=== PATIENT | male | born 1965 | race American Indian/Alaskan Native ===

== ENCOUNTER 2023-03-03 13:09 | Inpatient (IN) | payer SELFPAY ==
[~2023-03-03] VITALS: Ht 180.3 cm; Wt 104.7 kg
[2023-03-03 13:46] LABS: BASO % 0.2 % (0.0-2.0); GRAN # 10.7 K/mm3 (1.4-6.5); GRAN % 81.8 % (42.2-75.2); HEMATOCRIT 39.5 % (42.0-52.0); HEMOGLOBIN 13.9 g/dl (13.5-18.0); LYMPH # 1.2 K/mm3 (1.2-3.4); LYMPH % 8.8 % (20.0-51.0); MEAN CELL VOLUME 85 fl (80.0-100.0); MEAN CORPUSCULAR HEMOGLOBIN 30 pg (27-31); MEAN CORPUSCULAR HGB CONC 35 g/dl (33.0-37.0); MEAN PLATELET VOLUME 8.7 fl (7.4-10.4); MONO # 1.1 K/mm3 (0.1-0.6); MONO % 8.6 % (1.7-9.3); PLATELET COUNT 636 K/mm3 (130-400); RED BLOOD COUNT 4.67 M/mm3 (4.20-5.60); REDCELL DISTRIBUTION WIDTH-CV 12.6 % (11.5-14.5)
[2023-03-03 14:04] LABS: BILIRUBIN,TOTAL 0.5 mg/dL (0.2-1.2); CALCIUM 8.5 mg/dL (8.4-10.2); CREATININE, serum 0.86 mg/dL (0.72-1.25); POTASSIUM 4.4 mmol/L (3.5-4.5); TOTAL PROTEIN 6.5 gm/dL (6.2-8.1)
[2023-03-03 14:30] LABS: TROPONIN-I 0.746 ng/mL (0.00-0.033)
--- NOTE | 2023-03-03 17:44 | NUR ---
pt brought to room by wheelchair, ambulated to recliner w steady gate. pt a&ox4. vss and tele in place, heart rate elevated. pt on room air, saturations low to mid 90's. pt has some labored breathing at 20 RR. admission assessment complete.
--- NOTE | 2023-03-03 18:59 | NUR ---
dr maria luz anderson for consult. antonella to resume care for pt.
[2023-03-03 19:13] VITALS: BP_SYST 125
[2023-03-03 19:15] VITALS: BP 119/95; PULSE 116
[2023-03-03 19:40] VITALS: BP 122/73; PULSE 109; TEMP 98.7
--- NOTE | 2023-03-03 20:10 | NUR ---
Patient assessed at this time, head to toe assessment done, see shift assessment, denies pain at this time, with IV to left AC, denies further needs, call light and personal items within reach, will continue to monitor.
--- NOTE | 2023-03-03 20:42 | NUR ---
Called Litzy the PA and informed her regarding the critical result for troponin, no new orders received at this time.
[2023-03-04] VITALS (17 sets, daily range): BP systolic 100–135; BP diastolic 65–104; PULSE 90–111; TEMP 97.5–98.3
[2023-03-04 07:34] LABS: BASO % 0.2 % (0.0-2.0); GRAN # 11.4 K/mm3 (1.4-6.5); GRAN % 86.6 % (42.2-75.2); HEMATOCRIT 37.9 % (42.0-52.0); HEMOGLOBIN 13.1 g/dl (13.5-18.0); LYMPH # 0.8 K/mm3 (1.2-3.4); LYMPH % 6.2 % (20.0-51.0); MEAN CELL VOLUME 85 fl (80.0-100.0); MEAN CORPUSCULAR HEMOGLOBIN 29 pg (27-31); MEAN CORPUSCULAR HGB CONC 35 g/dl (33.0-37.0); MEAN PLATELET VOLUME 8.8 fl (7.4-10.4); MONO # 0.8 K/mm3 (0.1-0.6); MONO % 6.2 % (1.7-9.3); PLATELET COUNT 614 K/mm3 (130-400); RED BLOOD COUNT 4.47 M/mm3 (4.20-5.60); REDCELL DISTRIBUTION WIDTH-CV 12.6 % (11.5-14.5)
[2023-03-04 07:49] LABS: BILIRUBIN,TOTAL 0.6 mg/dL (0.2-1.2); CALCIUM 8.2 mg/dL (8.4-10.2); CREATININE, serum 0.86 mg/dL (0.72-1.25); MAGNESIUM 2.1 mg/dL (1.6-2.6); POTASSIUM 3.8 mmol/L (3.5-4.5); TOTAL PROTEIN 6.2 gm/dL (6.2-8.1)
[2023-03-04 08:33] LABS: TROPONIN-I 0.792 ng/mL (0.00-0.033)
--- NOTE | 2023-03-04 08:48 | NUR ---
TROPONIN LAB CALLED TO [facility].
--- NOTE | 2023-03-04 09:39 | NUR ---
Pt. sitting up in bed. Pt. is A&OX3, assessment complete. INT to lt. ac patent. Pt. denies pain or other needs, call light within reach.
--- NOTE | 2023-03-04 09:59 | NUR ---
Initial visit; Patient thanked Clinical Transformation Specialist for looking in on him and offering God's blessings. Patient has no needs he wants to address at this time.
--- NOTE | 2023-03-04 11:10 | NUR ---
Pt. to oven laborer.
--- NOTE | 2023-03-04 14:39 | NUR ---
Spoke with patient about Cardiac Rehabilitation. Educated the patient on Risk Factors and how CR helps support the patient with his new lifestyle changes. Patient will be here for 3 more weeks. CR staff asked patient where we could send his referral. Patient request we call [facility] in [place] at #[phone] to find out where they recommend him to go for Cardiac Rehab or he would consider [place] because his daughter works there. CR staff called Debbie physician practice coordinator w/ [facility] @ #[phone], left a message to return our phone call.
--- NOTE | 2023-03-04 16:13 | NUR ---
Storm Door Maker met with Patient at bedside to conduct Care Managment Assessment and discuss discharge planning. Patient lives in [place], [place] with his and children and is in this local area for work on [employer]. Patient is staying in an apartment for ~2months. Petient reports his discharge reccommendations will dictate if he chooses to discharge home or to his apartment in [place], [place]. Patient is not established with PCP, when offered assistance, Patient reports that he would like to be seen at the nearest [facility] clinic which he believes to be in [place], [place]. Patient has no medical insurance due to being seen by [facility] for care. PAtient does not have Advanced directives at this time and declines AD forms. Discharge Plan: Return to Apartment or home with family.
[2023-03-04 20:23] LABS: C-ANCA 8 U/mL (0-99)
--- NOTE | 2023-03-04 22:23 | NUR ---
Patient assessed at this time, reports headache didn't rate the pain, restarted IV to left hand, removed INT to left AC d/t leakage, on oxygen at 1LPM via nasal prong, he reports he feels better, removed the TR band at 192 and applied bandaid, no active bleeding noted, denies further needs, call light and personal items within reach, will continue to monitor.
[2023-03-05] VITALS (10 sets, daily range): BP systolic 95–109; BP diastolic 53–68; PULSE 87–95; TEMP 97.4–98.4
[2023-03-05 05:17] LABS: BASO % 0.2 % (0.0-2.0); GRAN % 87.8 % (42.2-75.2); HEMATOCRIT 37.5 % (42.0-52.0); HEMOGLOBIN 12.7 g/dl (13.5-18.0); LYMPH # 0.9 K/mm3 (1.2-3.4); LYMPH % 4.7 % (20.0-51.0); MEAN CELL VOLUME 86 fl (80.0-100.0); MEAN CORPUSCULAR HEMOGLOBIN 29 pg (27-31); MEAN CORPUSCULAR HGB CONC 34 g/dl (33.0-37.0); MEAN PLATELET VOLUME 8.3 fl (7.4-10.4); MONO # 1.2 K/mm3 (0.1-0.6); MONO % 6.6 % (1.7-9.3); PLATELET COUNT 637 K/mm3 (130-400); RED BLOOD COUNT 4.36 M/mm3 (4.20-5.60)
[2023-03-05 05:35] LABS: CALCIUM 8.2 mg/dL (8.4-10.2); CREATININE, serum 1.08 mg/dL (0.72-1.25); MAGNESIUM 2.3 mg/dL (1.6-2.6); POTASSIUM 3.9 mmol/L (3.5-4.5)
--- NOTE | 2023-03-05 09:48 | NUR ---
PT RESTING IN BED ON PHONE UPON ENTERING. ASSESSMENT DONE, SEE INTERVENTIONS. PT REPORTS NO PAIN AT THIS TIME. PT ON 2L NC, TOLERATING WELL. MORNING MEDICATIONS GIVEN WITHOUT DIFFICULTY. PT HAS NO OTHER COMPLAINTS AT THIS TIME. BED IN LOWEST POSTION AND CALL LIGHT IN REACH
--- NOTE | 2023-03-05 13:27 | NUR ---
PT UP IN BED EATING LUNCH UPON ENTERING. MEDICATION GIVEN PER ORDER AND SWALLOWED WITHOUT DIFFICULTY. PT DENIES ANY PAIN BUT REPORTS SOME LIGHT CRAMPING THAT STARTED RECENTLY. PT STATES THAT O2 HAS BEEN DRYING OUT HIS NOSE, RT CALLED. ZOSYN RUNNING AT 25 MLS/HR PER ORDER, PT TOLERATING WELL. CALL LIGHT IN REACH, BED IN LOWEST POSITION AND PT HAS NO OTHER COMPLAINTS AT THIS TIME
--- NOTE | 2023-03-05 16:10 | NUR ---
PT REFUSED SCDS. PT IS INDEPENDENT AND UP TO CHAIR FOR MEALS, AMBULATES TO BATHROOM AND TOLERATES WELL
[2023-03-06] VITALS (12 sets, daily range): BP systolic 94–111; BP diastolic 46–73; PULSE 84–95; TEMP 97.8–98.7
--- NOTE | 2023-03-06 03:59 | NUR ---
Shift assessment performed- see documentation. He is on 2 L O2 via nasal cannula. He has zosyn running at 25 ml/hr. He states that he has a headache that is 5/10 pain. PRN Tramodol was administered as ordered- see eMar. He has denied pain since.
[2023-03-06 07:55] LABS: BASO % 0.1 % (0.0-2.0); GRAN # 17.1 K/mm3 (1.4-6.5); GRAN % 88.3 % (42.2-75.2); HEMATOCRIT 41.6 % (42.0-52.0); HEMOGLOBIN 13.4 g/dl (13.5-18.0); LYMPH # 0.7 K/mm3 (1.2-3.4); LYMPH % 3.6 % (20.0-51.0); MEAN CORPUSCULAR HEMOGLOBIN 30 pg (27-31); MEAN CORPUSCULAR HGB CONC 32 g/dl (33.0-37.0); MONO # 1.4 K/mm3 (0.1-0.6); MONO % 7.1 % (1.7-9.3); PLATELET COUNT 692 K/mm3 (130-400); RED BLOOD COUNT 4.49 M/mm3 (4.20-5.60); REDCELL DISTRIBUTION WIDTH-CV 13.1 % (11.5-14.5)
[2023-03-06 07:58] LABS: MEAN CELL VOLUME 93 fl (80.0-100.0)
[2023-03-06 08:05] LABS: CREATININE, serum 1.01 mg/dL (0.72-1.25); POTASSIUM 3.4 mmol/L (3.5-4.5)
--- NOTE | 2023-03-06 09:20 | NUR ---
PT AWAKE IN BED UPON ENTERING EATING BREAKFAST. ASSESSMENT DONE, SEE INTERVENTIONS. PT HAS NO COMPLAINTS OF PAIN AT THIS TIME. PT ON 1L NASAL CANNULA, TOLERATING WELL ABOVE 90%. SUPERINTENDENT CUSTODIAN JANITOR REPORTED AN EVENT WHERE O2 WAS LEFT OFF PT AND SPO2 WENT DOWN TO 85% ON ROOM AIR. POTASSIUM THIS AM WAS 3.4, POTASSIUM PROTOCOL STARTED, RECHECK IN THE AM. PT HAS NO OTHER COMPLAINTS AT THIS TIME. CALL LIGHT IN REACH, BED IN LOWEST POSITION.
--- NOTE | 2023-03-06 11:54 | NUR ---
Express Clerk rounds: Patient was in bed, watching TV. Accepted Express Clerk visit. Patient is was waiting for his Father who would be visiting soon. Patient's sister called him on the cellphone. He spoke to her briefly. Patient lives in [place]; was here to work at [employer] temporarily. His family has been here to visit him. Most of them have gone home now. His Father will return home tomorrow. He, his , and his Daughter will travel home together when he is released. He thinks he might have to go to [place] first because he is a member of the [employer]. His insurance is through them. He may have to go to their hospital in [place]. Express Clerk offered prayers for healing, for safe travels for entire family, and for the successful completion of what is necessary for the insurance to pay so that there will be peace of mind.
--- NOTE | 2023-03-06 16:00 | NUR ---
PCT REYNOLD REPORTED SOFT BPS RIGHT ARM 88/57 AND LEFT ARM 94/46. CHARGE NURSE EVANS NOTIFIED. PT NOT REPORTING ANY DIZZINESS, LIGHTHEADNESS OR CONFUSION.
--- NOTE | 2023-03-06 16:20 | NUR ---
PT REPORTS HEAD PAIN WHEN COUGHING THAT IS RELIEVED AFTER COUGH RELIEF. PT ON ROOM AIR AND TOLERATING WELL. PT HAS NO OTHER COMPLAINTS AT THIS TIME.
[2023-03-07] VITALS (12 sets, daily range): BP systolic 91–119; BP diastolic 54–74; PULSE 74–92; TEMP 97.5–98.6
[2023-03-07 10:09] LABS: BASO % 0.2 % (0.0-2.0); EOS # 0.1 K/mm3 (0.0-0.7); EOS % 0.4 % (0.0-4.0); GRAN # 15.1 K/mm3 (1.4-6.5); GRAN % 88.9 % (42.2-75.2); HEMATOCRIT 38.6 % (42.0-52.0); LYMPH # 0.7 K/mm3 (1.2-3.4); MEAN CORPUSCULAR HEMOGLOBIN 29 pg (27-31); MEAN CORPUSCULAR HGB CONC 34 g/dl (33.0-37.0); MEAN PLATELET VOLUME 8.5 fl (7.4-10.4); PLATELET COUNT 665 K/mm3 (130-400); RED BLOOD COUNT 4.44 M/mm3 (4.20-5.60); REDCELL DISTRIBUTION WIDTH-CV 13.5 % (11.5-14.5)
[2023-03-07 10:11] LABS: MEAN CELL VOLUME 87 fl (80.0-100.0)
--- NOTE | 2023-03-07 11:39 | NUR ---
Patient independent in room with his family at his side. Cardiology has rounded, plan of care reviewed with patient. He did well with breakfast. Patient aware of strict I&O & has been using urinal. Will monitor.
--- NOTE | 2023-03-07 19:36 | NUR ---
Patient has been up independently ambulating halls today. He is anxious for discharge. His supportive family has been at bedside today. He has tolerated heart healthy diet. Strict I&O. bedside report to jovan
--- NOTE | 2023-03-07 22:46 | NUR ---
2004-PT.'S O2 WAS 90% ON RA, I ASKED HIM IF HE HAD BEEN USING HIS INCENTIVE SPIROMETER, HE STATED HE HAD USED IT A COUPLE TIMES AN HOUR, BUT THAT IT MADE HIM COUGH, I INFORMED HIM THAT ALTHOUGH IT WAS DIFFICULT TO COUGH MORE THAT IT WAS ACTUALLY A GOOD THING WELL, THAT WOULD HELP ANY SECRETIONS IN THE BASE OF HIS LUNGS TO MOVE, AND KEEP FROM SETTLING, WHICH IS WHAT CAN LEAD TO PNA, PT. STATED UNDERSTANDING, AND WAS IN THE MIDDLE OF USING THE IS AGAIN THE NEXT TIME I WENT TO CHECK ON HIM, PT. DENIES ANY FURTHER NEEDS AT THIS TIME, WILL CONTINUE TO MONITOR.
--- NOTE | 2023-03-07 23:23 | NUR ---
PT AWAKE AND ON RA. PLACED PT ON NOCOX.
[2023-03-08] VITALS (7 sets, daily range): BP systolic 82–119; BP diastolic 53–68; PULSE 54–95; TEMP 97.7–98.3
[2023-03-08 14:39] LABS: CALCIUM 8.5 mg/dL (8.4-10.2); CREATININE, serum 1.29 mg/dL (0.72-1.25); MAGNESIUM 2.6 mg/dL (1.6-2.6); POTASSIUM 3.8 mmol/L (3.5-4.5)
[2023-03-08] MEDS ORDERED: BRILINTA90 MG PO ×2 (14:44)
[2023-03-08] MEDS ORDERED: OMNICEF 300MG300 MG PO (14:44)
[2023-03-08] MEDS ORDERED: DOXYCYCLINE 10100 MG PO (14:44)
[2023-03-08] MEDS ORDERED: PROAIR HFA0.09 MG/AC IH (14:44)
[2023-03-08] MEDS ORDERED: LIPITOR 80MG80 MG PO (14:45)
[2023-03-08] MEDS ORDERED: IMDUR 30MG30 MG/TAB PO (14:45)
[2023-03-08] MEDS ORDERED: LOPRESSOR 225 MG/TAB PO (14:46)
[2023-03-08] MEDS ORDERED: COZAAR 25MG25 MG/TAB PO (14:48)
[2023-03-08] MEDS ORDERED: ASPIRIN E.C. 8181 MG PO (14:48)
[2023-03-08] MEDS ORDERED: LASIX 40MG TABL40 MG PO (14:48)
[2023-03-08] MEDS ORDERED: ALDACTONE 25MG25 M1 PO (14:48)
[2023-03-08] MEDS ORDERED: PREDNISONE20 MG PO (14:49)
--- NOTE | 2023-03-08 15:00 | NUR ---
The patient is to discharge back home today, 03/08. No additional needs at this time.
[2023-03-08] MEDS ORDERED: PLAVIX 75MG TAB75 MG PO (15:46)
[2023-03-08 16:02] LABS: BASO % 0.2 % (0.0-2.0); EOS % 0.1 % (0.0-4.0); GRAN # 16.4 K/mm3 (1.4-6.5); GRAN % 88.7 % (42.2-75.2); HEMATOCRIT 44.8 % (42.0-52.0); HEMOGLOBIN 14.9 g/dl (13.5-18.0); LYMPH # 0.9 K/mm3 (1.2-3.4); LYMPH % 4.9 % (20.0-51.0); MEAN CELL VOLUME 88 fl (80.0-100.0); MEAN CORPUSCULAR HEMOGLOBIN 29 pg (27-31); MEAN CORPUSCULAR HGB CONC 33 g/dl (33.0-37.0); MEAN PLATELET VOLUME 8.4 fl (7.4-10.4); MONO % 5.5 % (1.7-9.3); PLATELET COUNT 831 K/mm3 (130-400); REDCELL DISTRIBUTION WIDTH-CV 13.7 % (11.5-14.5)
--- NOTE | 2023-03-08 16:33 | NUR ---
DISCHARGE INSTRUCTIONS PROVIDED. PATIENT EDUCATION GIVEN. IV DC'D. FOLLOW UP WITH NEW PCP DISCUSSED, MEDICATIONS REVIEWED. PATIENT AND DENY ANY QUESTIONS OR CONCERNS. PATIENT ESCORTED OUT.
[2023-03-08 19:16] LABS: ANGIOTENSIN CONVERTING ENZYME 11 U/L (16 - 85)
== END 2023-03-08 16:48 | disposition home or self-care (01) | DRG 246 ==
LOC: COL.ER 13:09 → SURG 15:35
PROVIDERS: Internal Medicine; Internal Medicine Pulmonary Disease; Physician Assistant; ADMIT Internal Medicine
PROC: 4A023N7 Measurement of Cardiac Sampling and Pressure, Left Heart, Percutaneous Approach (ICD-10-PCS; principal; 2023-03-04)
PROC: 027135Z Dilation of Coronary Artery, Two Arteries with Two Drug-eluting Intraluminal Devices, Percutaneous Approach (ICD-10-PCS; 2023-03-04)
PROC: B2111ZZ Fluoroscopy of Multiple Coronary Arteries using Low Osmolar Contrast (ICD-10-PCS; 2023-03-04)
DX: I21.4 Non-ST elevation (NSTEMI) myocardial infarction (principal); J96.01 Acute respiratory failure with hypoxia; R65.10 Systemic inflammatory response syndrome (SIRS) of non-infectious origin without acute organ dysfunction; J90 Pleural effusion, not elsewhere classified; E87.1 Hypo-osmolality and hyponatremia; I50.20 Unspecified systolic (congestive) heart failure; J81.1 Chronic pulmonary edema; I42.9 Cardiomyopathy, unspecified; I25.10 Atherosclerotic heart disease of native coronary artery without angina pectoris; J45.990 Exercise induced bronchospasm; D75.839 Thrombocytosis, unspecified; E87.70 Fluid overload, unspecified; I34.0 Nonrheumatic mitral (valve) insufficiency; Z87.01 Personal history of pneumonia (recurrent)
CPT/HCPCS: C1769; C1874; C1887; C9600; J0583; J0692; J1100; J1644; J1885; J1940; J2250; J2543; J2920; J3010; J7030; Q9967